=== PATIENT | male | born 1975 | race Hispanic/Latino ===

== ENCOUNTER 2025-04-01 14:24 | Emergency (ER) | payer BC ==
[~2025-04-01] VITALS: Ht 162.6 cm; Wt 86.2 kg
[2025-04-01 14:32] VITALS: BP 120/90; PULSE 94; RESP 16; TEMP 98.2
--- NOTE | 2025-04-01 15:10 | NUR ---
PT JUST NOW PLACED IN HALLWAY C. NO ACUTE DISTRESS
[2025-04-01] MEDS: ketOROlac 15MG/ML VIAL (15MG/ML) IM ONE (15:20)
--- NOTE | 2025-04-01 15:23 | NUR ---
WRIST FILMS JUST COMPLETED
--- NOTE | 2025-04-01 15:51 | ERN ---
General Chief Complaint: Wrist Pain/Injury Stated Complaint: RIGHT WRIST PAIN Time Seen by MD: 14:45 Time Seen by Midlevel: 14:45 Source: patient History of Present Illness Initial Comments 49-year-old male presents to the emergency department due to right wrist pain. Patient reports that approximately one week ago he accidentally hit himself with a metal to the right wrist. States pain is worse with movement. Denies any further injuries or trauma. Denies significant past medical history. Allergies: Coded Allergies: No Known Drug Allergies (Unverified Allergy, Unknown, 04/01/25) Past Medical History Past Medical History: No Pertinent History Past Surgical History: Other Surgical History Other: LEFT LUNG SX ROS Dictation Constitutional: Negative for fever,chills, and weight loss Eyes: Negative for injury, pain,redness, and discharge ENT: Negative for injury,pain or swelling Cardiovascular: Negative for chest pain, palpitations, and edema Respiratory: Negative for shortness of breath, cough, and wheezing, Abdomen/GI: Negative for abdominal pain, nausea, vomiting, diarrhea, and constipation Back: Negative for injury and pain : Negative for painful urination, bleeding or discharge MS/Extremity: Positive for right wrist pain Negative for injury and deformity Skin: Negative for rash, and discoloration Neuro: Negative for headache, weakness, numbness, tingling, and seizure Psych: Negative for suicide ideation, homicidal ideation, and hallucinations Physical Exam Physical Exam Dictation General: awake, alert, no acute distress Head/Face: Normocephalic, atraumatic Eyes: PERRL, EOMI, normal conjunctiva ENT: oral cavity clear, oral mucosa moist Neck: Supple, normal range of motion Cardiovascular: RRR, normal S1/S2 Skin: Warm, dry, normal turgor, no rash MS/Extremity: Pulses equal, no cyanosis, neurovascular intact, FROM. Mild t enderness to the dorsal aspect of the right wrist, no deformities, neurovascularly intact, normal range of motion, no swelling Neuro: COAx4, GCS 15, strength 5/5, CN 2-12 intact, normal cerebellar exam, normal gait Psych: Normal behavior, mood, and affect normal Results EKG/XRAY/US/CT/MRI X-RAY Comment REASON: pain ORDERING PHYSICIAN: MARIAH LEVINE PROCEDURE: WRST 3V RT - WRIST COMP 3+VWS RT WRIST COMP 3+VWS RT HISTORY: Pain COMPARISON: None TECHNIQUE: 3 images of the right wrist were obtained. FINDINGS: There is no acute displaced fracture or dislocation. Radiocarpal joint space narrowing is seen. Degenerative changes are seen. IMPRESSION: 1. Findings as described above. DICTATED BY: BRUCE IBRAHIM MD DATE: 04/01/25 1605 [facility] MDM: Differential diagnosis: Fracture, sprain, strain, dislocation Rationale: 49-year-old male presents to the emergency department due to right wrist pain. Patient reports that approximately one week ago he accidentally hit himself with a metal to the right wrist. Denies any further injuries or trauma. Denies significant past medical history. Per physical examination patient is in no acute distress, no obvious deformity of the right wrist, neurovascularly intact, normal range of motion, no swelling. X-rays obtained indicating no fractures, degenerative changes noted. Patient was administered ketorolac in the ED and provided a wrist splint. Advised to follow up with PCP. Return to the emergency department if any worsening symptoms. Patient verbalized understanding. Patient stable for discharge. There are no social concerns with this patient. I independently interpreted the test that were performed, results were reviewed by me and considered findings on radiology if ordered. Medical management and examination interpretation discussions were had by me with other qualified healthcare professionals as indicated for the patient's care. ED Course Orders Procedure Category Date Status Time Wrist Comp 3+Vws Rt RAD 04/01/25 Resulted 14:54 Ketorolac PHA 04/01/25 Complete Tromethamine 15mg/Ml 15:00 Current Medications Medications (Trade) Dose Ordered Sig/Dioni Route PRN Reason Start Time Stop Time Status Last Admin Dose Admin Ketorolac Tromethamine (toRADol) 15 mg ONCE ONCE IM 04/01/25 15:00 04/01/25 15:01 DC 04/01/25 15:20 Vital Signs Date Time Temp Pulse Resp B/P (MAP) Pulse Ox O2 Delivery O2 Flow Rate FiO2 04/01/25 14:32 98.2 94 16 120/90 97 Room Air 0 DX & DISP Disposition: Discharge Departure Impression: Primary Impression: Wrist sprain Additional Impression: Wrist contusion Condition: Stable Additional Instructions: Discharge home. Rest. Follow up with primary care in 24 hours. Return to the ER for any acute changes or worsening symptoms. If any medications were prescribed take as directed. Okay to continue home medications unless otherwise discussed during your visit in the emergency room today. Patient was also advised to follow-up with primary care physician in 1 to 2 days for continued monitoring. Referrals: SELF,REFERRAL (PCP) I performed the substantive portion of the visit. I have reviewed and personally made and approve the management plan that is documented in the notes by myself or the SERA. I acknowledge full responsibility for the patient's management plan. MARIAH LEVINE April 01, 2025 15:51
--- NOTE | 2025-04-01 16:09 | HMCIMG ---
WRIST COMP 3+VWS RT HISTORY: Pain COMPARISON: None TECHNIQUE: 3 images of the right wrist were obtained. FINDINGS: There is no acute displaced fracture or dislocation. Radiocarpal joint space narrowing is seen. Degenerative changes are seen. IMPRESSION: 1. Findings as described above.
== END 2025-04-01 16:15 | disposition home or self-care (01) ==
LOC: EDH 14:24
DX: S63.501A Unspecified sprain of right wrist, initial encounter (principal); W22.8XXA Striking against or struck by other objects, initial encounter; Y93.89 Activity, other specified; Y92.89 Other specified places as the place of occurrence of the external cause; Y99.8 Other external cause status
CPT/HCPCS: 73110; 99284; 29125; 96372; J1885